=== PATIENT | male | born 1995 | race African-American/Black ===

== ENCOUNTER 2021-07-13 17:00 | Inpatient (IN) | payer MEDICAID ==
[~2021-07-13] VITALS: Ht 188 cm; Wt 82.6 kg
[2021-07-13] MEDS ORDERED: traZODone 50mg tablet PO PRN (21:30)
[2021-07-13] MEDS ORDERED: magnesium hydroxide 30ml (MOM) UD suspension PO PRN (21:30)
[2021-07-13] MEDS ORDERED: mag hydrox/Alum hydrox/simeth 30ml oral suspension PO PRN (21:30)
[2021-07-13] MEDS ORDERED: acetaminophen 325mg tablet PO PRN ×2 (21:30)
[2021-07-13] MEDS ORDERED: LORazepam 1 MG tablet PO PRN (21:30)
[2021-07-13 22:21] VITALS: BP 133/94
--- NOTE | 2021-07-13 23:22 | NUR ---
Admti note: 26 Y/O brought into the ER ([facility]) by [employer] for altered mental status. PT was found at [facility] demonstrating disorganized thoughts, rambling speech and climbing on rocks around the [place]. EMS reported he swallowed an entire bag of meth. In the ER pt became increasingly agitated requiring multiple doses of antipsychotics. The patient required intubation and sedation. Pt brought to [facility] unit, calm and cooperative. Pt declined shower, skin check completed, belongings inventoried. Pt presented as well groomed, neat and appropriate.
[2021-07-14 08:00] VITALS: BP 113/74
[2021-07-14] MEDS ORDERED: NO HOME MEDS (11:21)
--- NOTE | 2021-07-14 17:18 | NUR ---
Nursing Progress Note: Legal hold: 5150 Client on involuntary status for GD Report received from nurse with use of SBAR: RAMBO Bean Why are they here: 26 Y/O brought into the ER ([facility]) by [employer] for altered mental status. PT was found at [facility] demonstrating disorganized thoughts, rambling speech and climbing on rocks [place]. EMS reported he swallowed an entire bag of meth. In the ER pt became increasingly agitated requiring multiple doses of antipsychotics. The patient required intubation and sedation. Assessment What has happened this shift: Received pt. sleeping in bed at the beginning of the shift, he was awoken by staff to attend breakfast in the Group Room. Afterwards, 1:1 was completed at bedside, pt. presents as cooperative and pleasant. He is A&O X3, not to reason he is here. Pt. denies any S/I, H/I, or A/V/RINCON and is not observed to be responding to any internal stimuli. He does admit to some anxiety r/t missing work and reports he currently works at [employer]. Also, pt. 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 He states in a somewhat grandiose way, "They told me I was one of the best, I might win an Cammy." When this principal technical writer questioned pt. regarding his recent substance use, he stated in a delusional manner, "I was out at [facility] swimming trying to find a trident. It was like a mystical experience." He denies any past substance use. Pt. then continues on in a circumstantial manner to talk about his job at [employer] and his upcoming music competition. He ends the conversation by stating, "I have a lot to live for." Pt. remained up throughout the day interacting appropriately with others and talking on the telephone at intervals with his family. This principal technical writer spoke to both of pt's parents with his consent, and his family appears to be very supportive. Obtained pictures of lacerations on right foot and orders to continue current wound care. Per RAJESH Ferrer: Right great toe and heel lacerations: Cleanse with NS, apply silver alginate, cover with Mepilex dressing, secure with Kerlix daily and PRN soiled, loosened. S/I, H/I: Denies A/VH: Denies, does not appear to be internally preoccupied Sleep: Pt. reports he slept well, sleep hours are 5.75 ADL's: Independent Group attendance: N/A Were meds taken: None ordered Any med S/E: N/A Mental Status Exam Appearance: Neat and appropriately dressed Eye contact: Good Behavior: Cooperative and pleasant Speech: WNL Mood: Pleasant Affect: Animated Thought process: Circumstantial Thought Content: Preoccupation with desire to discharge Cognition: A&O X3 (not to why here) Insight: Poor Judgment: Poor Interventions PRN's used: Tylenol Therapeutic interventions: Introduced self and established rapport, maintained a safe and supportive environment, ensured contract for safety, provided clear and simple instructions, provided active listening and positive encouragement, obtained pictures of lacerations on right foot and orders to continue current wound care, and maintained Q 15mi min safety checks. Restraints/seclusion/emergency medication: N/A Justification of Continued Inpatient Treatment: Pt. requires interruption of current crisis and a safe and therapeutic environment.
[2021-07-14 20:02] VITALS: BP 153/108
--- NOTE | 2021-07-15 00:54 | NUR ---
Nursing Progress Note: Legal hold: 5150 Client on involuntary status for GD Report received from nurse with use of SBAR: RAMBO Bean Why are they here: 26 Y/O brought into the ER ([facility]) by [employer] for altered mental status. PT was found at [facility] demonstrating disorganized thoughts, rambling speech and climbing on rocks around the [place]. EMS reported he swallowed an entire bag of meth. In the ER pt became increasingly agitated requiring multiple doses of antipsychotics. The patient required intubation and sedation. Assessment What has happened this shift: Pt was friendly and cooperative for assessments and care, but pt minimizes what transpired to get him here. Pt is hopeful to be going home soon and believes he will. Pt states that he does not needs meds; pt does not seem to be depressed or be experiencing anxiety. Pt spent time reading the bible and talking the phone before going to bed. S/I, H/I: Denies A/VH: Denies, does not appear to be internally preoccupied Sleep: see sleep assessment ADL's: Independent Group attendance: N/A Were meds taken: None ordered Any med S/E: N/A Mental Status Exam Appearance: Neat and appropriately dressed Eye contact: Good Behavior: Cooperative and pleasant Speech: WNL Mood: Pleasant Affect: Animated Thought process: Circumstantial Thought Content: Preoccupation with desire to discharge Cognition: A&O X3 (not to why here) Insight: Poor Judgment: Poor Interventions PRN's used: Therapeutic interventions: established rapport, maintained a safe and supportive environment, ensured contract for safety, provided clear and simple instructions, provided active listening and positive encouragement, and maintained Q 15 min safety checks. Restraints/seclusion/emergency medication: N/A Justification of Continued Inpatient Treatment: Pt. requires interruption of current crisis and a safe and therapeutic environment.
[2021-07-15 08:07] VITALS: BP 98/77
[2021-07-15 10:49] LABS: BASOPHILS # (AUTO) 0.1 X10'3 (0-0.2); EOSINOPHILS # (AUTO) 0.1 X10'3 (0-0.9); EOSINOPHILS % (AUTO) 2.3 % (0-6); HEMATOCRIT 49.5 % (42.0-52.0); HEMOGLOBIN 16.8 g/dl (14.0-17.9); LYMPHOCYTES # (AUTO) 2.1 X10'3 (1.1-4.8); MEAN CORPUSCULAR HEMOGLOBIN 30.5 PG (27.0-31.0); MEAN CORPUSCULAR HGB CONC 33.9 g/dL (33.0-36.5); MEAN PLATELET VOLUME 7.9 FL (7.4-10.4); MONOCYTES # (AUTO) 0.7 X10'3 (0-0.9); MONOCYTES % (AUTO) 13.6 % (2-12); NEUTROPHILS # (AUTO) 2.5 X10'3 (1.8-7.7); NEUTROPHILS % (AUTO) 45.1 % (42-75); PLATELET COUNT 329 X10'3 (140-440); RED CELL DISTRIBUTION WIDTH 13.2 % (11.5-14.5); WHITE BLOOD COUNT 5.4 X10'3 (4.5-11.0)
[2021-07-15 10:58] LABS: ALANINE AMINOTRANSFERASE 34 U/L (12-78); ALBUMIN 3.9 G/DL (3.4-5.0); ALBUMIN/GLOBULIN RATIO 0.8 (1.1-1.5); ALKALINE PHOSPHATASE 66 IU/L (46-116); ANION GAP 7 (8-16); ASPARTATE AMINO TRANSFERASE 21 U/L (10-37); BILIRUBIN,TOTAL 0.3 MG/DL (0.1-1.0); BLOOD UREA NITROGEN 20 MG/DL (7-18); BUN/CREATININE RATIO 20.2 (5.4-32.0); CALCIUM 9.3 MG/DL (8.5-10.1); CHLORIDE 102 MMOL/L (99-107); CREATININE 0.99 MG/DL (0.60-1.10); GLUCOSE 69 MG/DL (70-104); MAGNESIUM 2.2 MG/DL (1.5-2.4); POTASSIUM 4.7 MMOL/L (3.5-5.1); SODIUM 138 MMOL/L (135-145); TOTAL PROTEIN 8.5 G/DL (6.4-8.2); eGFR > 90 ML/MIN
--- NOTE | 2021-07-15 12:29 | NUR ---
Nursing Progress Note: Legal hold: 5150 Client on involuntary status for GD Report received from nurse with use of SBAR: RAMBO Bean Why are they here: 26 Y/O brought into the ER ([facility]) by [employer] for altered mental status. PT was found at [facility] demonstrating disorganized thoughts, rambling speech and climbing on rocks around the [place]. EMS reported he swallowed an entire bag of meth. In the ER pt became increasingly agitated requiring multiple doses of antipsychotics. The patient required intubation and sedation. Assessment What has happened this shift: Pt continues to do well and is active on the unit. Pt is observed interacting with other patients in an appropriate manner. Pt is still delusional about why he is here and does not seem to take responsibility. Pt has a good attitude and is friendly with other patients. Pt does not feel that he needs medication. Pts wounds were redressed. Each wound was cleaned with ns, silver alginate was applied and covered with kerlix and fastened with coban. Pt was very thankful for wound care. S/I, H/I: Denies A/VH: Denies, does not appear to be internally preoccupied Sleep: see sleep assessment ADL's: Independent Group attendance: N/A Were meds taken: None ordered Any med S/E: N/A Mental Status Exam Appearance: Neat and appropriately dressed Eye contact: Good Behavior: Cooperative and pleasant Speech: WNL Mood: Pleasant Affect: Animated Thought process: Circumstantial Thought Content: Preoccupation with desire to discharge Cognition: A&O X3 (not to why here) Insight: Poor Judgment: Poor Interventions PRN's used: Therapeutic interventions: established rapport, maintained a safe and supportive environment, ensured contract for safety, provided clear and simple instructions, provided active listening and positive encouragement, and maintained Q 15 min safety checks. Restraints/seclusion/emergency medication: N/A Justification of Continued Inpatient Treatment: Pt. requires interruption of current crisis and a safe and therapeutic environment.
[2021-07-15 19:41] VITALS: BP 160/84
--- NOTE | 2021-07-16 00:41 | NUR ---
Nursing Progress Note: Legal hold: 5150 Client on involuntary status for GD Report received from nurse with use of SBAR: Frankie RN Why are they here: 26 Y/O brought into the ER ([facility]) by [employer] for altered mental status. PT was found at [facility] demonstrating disorganized thoughts, rambling speech and climbing on rocks around the [place]. EMS reported he swallowed an entire bag of meth. In the ER pt became increasingly agitated requiring multiple doses of antipsychotics. The patient required intubation and sedation. Assessment What has happened this shift: Patient talking on the phone in the community room at the beginning of shift. Pleasant and cooperative with care; no scheduled medications this shift. Bandage to foot and to CDI and patient denies pain. Patient denies SI, HI, A/VH; does not appear to be responding to IS and no delusional thought expressed this shift. Patient remained on the phone while reading his Bible allowed and observed walking the [place] and singing to the person on the phone. He participated in HS snack prior to bed; observed sleeping and does not appear to be having difficulty. S/I, H/I: Denies A/VH: Denies Sleep: Refer to sleep assessment ADL's: Independent Group attendance: NA Were meds taken: None ordered Any med S/E: NA Mental Status Exam Appearance: Neat and appropriately dressed Eye contact: Good Behavior: Pleasant and cooperative, social Speech: Clear, audible, regular rate/rhythm Mood: Euthymic Affect: Congruent to mood Thought process: Linear Thought Content: Meeting needs, discharge Cognition: A&O X3 (not to why here) Insight: Poor Judgment: Poor Interventions PRN's used: None Therapeutic interventions: established rapport, maintained a safe and supportive environment, ensured contract for safety, provided clear and simple instructions, provided active listening and positive encouragement, and maintained Q 15 min safety checks. Restraints/seclusion/emergency medication: N/A Justification of Continued Inpatient Treatment: Pt. requires interruption of current crisis and a safe and therapeutic environment.
[2021-07-16 08:00] VITALS: BP 95/67
--- NOTE | 2021-07-16 14:14 | NUR ---
Pt attended group today. Today we talked about the definition of resiliency, the ways to build resiliency and how to bounce back. They took a change resiliency test to see how they are able to manage change and discussed coping skills to help while navigating change. Pt. engaged well in the group. He was in a good mood with a full range of affect. He did the test and shared openly about his results and about his life with the group. 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 He also reported that music is a coping skill for him. His goal is to bring positivity into the world. He was alert and oriented X 4. His thought content contained moravian references as he reported that his spirituality is also a coping skill for him. His thought process was linear. He was pleasant, compliant and calm throughout the group. He was conscientious of his fellow peers and friendly. Mena Gotti LCSW
--- NOTE | 2021-07-16 14:41 | NUR ---
Wound care consulted to see pt and make recommendations, assessment was deferred as already has orders from MD as to how to manage the wounds that are present. Wound care will be available if needed in the future.
--- NOTE | 2021-07-16 16:50 | NUR ---
Patient discharged from [facility] and escorted from unit at approximately 1555. He was picked up by [facility] transport service. Discharge instructions received and verbalized understanding. Patients belongings inventoried and returned to him. Patient is calm, cooperative, A&O x4, with no complaints or apparent distress. Patient verbalized understanding of discharge plan and medications. He left the hospital without incident.
== END 2021-07-16 15:55 | disposition home or self-care (01) | DRG 776 ==
LOC: ADULT MH 17:00
PROVIDERS: ADMIT Psychiatry & Neurology Psychiatry; ATTEND Psychiatry & Neurology Psychiatry
DX: F15.959 Other stimulant use, unspecified with stimulant-induced psychotic disorder, unspecified (principal); F12.90 Cannabis use, unspecified, uncomplicated; F17.210 Nicotine dependence, cigarettes, uncomplicated; F43.10 Post-traumatic stress disorder, unspecified; L98.9 Disorder of the skin and subcutaneous tissue, unspecified
CPT/HCPCS: 36415; 80053; 83735; 84145; 85025; 87081